=== PATIENT | female | born 1935 | race African-American/Black ===

== ENCOUNTER 2017-10-27 10:08 | Emergency (ER) | payer MEDICARE, OTHER ==
[~2017-10-27] VITALS: Ht 167.6 cm; Wt 75.0 kg
[2017-10-27] MEDS ORDERED: VALS320T2 PO (10:26)
[2017-10-27] MEDS ORDERED: NIFE30TA98 PO (10:26)
[2017-10-27] MEDS ORDERED: SITA100 PO (10:26)
[2017-10-27] MEDS ORDERED: GLIP5TAB11 PO (10:26)
[2017-10-27] MEDS ORDERED: ATOR10TA69 PO (10:26)
[2017-10-27] MEDS ORDERED: GLIP5TAB3 PO (10:26)
[2017-10-27] MEDS ORDERED: APIX2.5T PO (10:26)
[2017-10-27] MEDS ORDERED: VALS160T2 PO (10:26)
[2017-10-27 10:33] LABS: GLUCOSE,POINT OF CARE 226 MG/DL (70-110)
[2017-10-27] MEDS ORDERED: IBUPROFEN 600 MG TABLET PO ONE (11:15)
[2017-10-27] MEDS ORDERED: ACETAMINOPHEN 325 MG TABLET PO ONE (11:15)
[2017-10-27 12:15] LABS: INFLUENZA TYPE A NEGATIVE FOR TYPE A (NEGATIVE); INFLUENZA TYPE B NEGATIVE FOR TYPE B (NEGATIVE)
[2017-10-27 13:52] VITALS: BP 132/62
== END 2017-10-27 13:57 | disposition home or self-care (01) ==
LOC: EMS 10:12
DX: B34.9 Viral infection, unspecified (principal); I10 Essential (primary) hypertension; Z95.0 Presence of cardiac pacemaker; Z88.0 Allergy status to penicillin; Z79.899 Other long term (current) drug therapy; Z90.49 Acquired absence of other specified parts of digestive tract
CPT/HCPCS: 71020; 82962; 87804; 99285